=== PATIENT | male | born 1965 | race Caucasian/White ===

== ENCOUNTER 2016-07-08 08:59 | Observation (INO) ==
[2016-07-08] MEDS ORDERED: Ipratropium/Albuterol Neb 3 ML ONE (09:14)
[2016-07-08] MEDS ORDERED: Levalbuterol Neb 1.25 MG/3 ML ONE (09:30)
[2016-07-08] MEDS ORDERED: Levalbuterol Neb 1.25 MG/3 ML IH ONE ×2 (09:33→09:36)
[2016-07-08] MEDS ORDERED: Ipratropium/Albuterol Neb 3 ML IH ONE ×2 (09:34→09:36)
--- NOTE | 2016-07-08 09:38 | Emergency Department Note ---
Disposition Clinical Impression: COPD exacerbation Disposition: Admitted As Inpatient Condition: Fair Referrals: Rosalie Martinez CNP [Primary Care Provider] - Forms: ED Satisfaction Letter SOB HPI - General Chief Complaint: ED Upper Respiratory Infection Stated Complaint: coughing,rib and back pain Source: patient Limitations: no limitations Nursing Notes Reviewed: Yes Vital Signs Reviewed: Yes - History of Present Illness 51-year-old male presents for difficulty breathing, chest pain, and productive cough. Patient states she has had productive cough for the last 3 days. He is a known history of COPD. He complains of bilateral rib pain from his coughing. He is unaware of any fever. His prior history of COPD states using nebulizers at home on an as-needed basis. He does not use oxygen. He has never been hospitalized for it. He is a smoker around one pack per day. He has not been smoking for the last 3 days because of his shortness of breath. - Related Data Home Medications Medication Instructions Recorded Confirmed Aspirin 81 mg PO DAILY 12/06/15 07/08/16 Atenolol 100 mg PO DAILY 12/06/15 07/08/16 HYDROcodone/Acet 5/325 mg [[place] 1 tab PO Q6H PRN 12/06/15 07/08/16 5-325 mg] Hydrochlorothiazide 25 mg PO DAILY 07/08/16 07/08/16 Lisinopril [Zestril] 20 mg PO DAILY 07/08/16 07/08/16 Previous Rx's Medication Instructions Recorded Ipratropium/Albuterol Neb [Duoneb] 3 ml IH Q4HR #1 vial.neb 12/06/15 Allergies Allergy/AdvReac Type Severity Reaction Status Date / Time morphine AdvReac Chest Pain Verified 07/08/16 09:16 Review of Systems: Constitutional: [Negative for fever and chills.] HENT: [Negative for congestion.] Eyes: [Negative for discharge.] Respiratory: See history of present illness Cardiovascular: See history of present illness Gastrointestinal: [Negative for nausea, vomiting, abdominal pain and diarrhea.] Endocrine: [Negative for excessive thirst,urination] Genitourinary: [Negative for dysuria and frequency.] Musculoskeletal: [Negative for myalgias and arthralgias.] Skin: [Negative for rash.] Neurological: [Negative for dizziness, localized weakness and headaches.] Psychiatric/Behavioral: [Negative for nervous/anxious.] All other systems reviewed and are negative. Past Medical History - Past Medical History Attestation: Yes The following information was validated with the patient. Source: patient Medical history: Reports: asthma, COPD, coronary artery disease, hypertension Psychiatric history: Reports: no psych history - Social History Smoking Status: Current every day smoker Smokeless Tobacco Status: No Alcohol use: Reports: none Drug use: Reports: none Physical Exam Constitutional: Patient is alert, overweight, [well nourished, well developed] , mildly tachypneic and cooperative. . The patient appears, nontoxic, and [ does not appear ill]. There is mild pain. HENT: Head: Normocephalic and atraumatic. Right Ear: External ear normal. Left Ear: External ear normal. Nose: Nose normal. Mouth/Throat: Oropharynx is clear and moist and mucous membranes show [good hydration.][] Eyes: Conjunctivae and EOM are normal. Pupils are equal, round, and reactive to light. Right eye exhibits no discharge. Left eye exhibits no discharge. Neck: Trachea is midline, normal range of motion and phonation normal. Neck supple. Cardiovascular: [Normal rate], regular rhythm, S1 normal, S2 normal, normal heart sounds and intact distal pulses. Exam reveals no gallop and no friction rub. No murmur heard. Pulmonary/Chest: Effort increased No stridor. Mild tachypnea. [No] respiratory distress. There are no decreased breath sounds. There are diffuse wheezes and rhonchi heard throughout all lung robertson, no rales. There is chest wall tenderness in his bilateral ribs but no crepitus or deformity. Abdominal: Soft. Bowel sounds are normal. There exhibits no distension and no mass. There is no hepatosplenomegaly. There is [no] tenderness, [no] CVA tenderness. There is no rigidity, no rebound, no guarding. Musculoskeletal: Normal range of motion and exhibits [no] edema or tenderness. Neurological: Patient is alert and oriented to [person, place, and time]. Patient displays no atrophy and no tremor. No cranial nerve deficit and exhibits normal muscle tone. Coordination normal. Skin: Skin is warm and dry. No rash noted. No erythema. Psychiatric: Patient has a normal mood,affect, behavior, judgment, and thought content. Course - Reevaluation(s) Reevaluation #1: The patient despite 3 breathing treatments and Solu-Medrol IV still shows significant rhonchi and wheezes. Vital Signs Temperature 98.8 F 07/08/16 09:17 Pulse Rate 80 07/08/16 09:17 Respiratory Rate 22 07/08/16 09:17 Blood Pressure 120/92 07/08/16 09:17 O2 Sat by Pulse Oximetry 100 07/08/16 09:17 Temperature 98.8 F 07/08/16 09:17 Pulse Rate 80 07/08/16 09:17 Respiratory Rate 22 07/08/16 09:17 Blood Pressure 120/92 07/08/16 09:17 O2 Sat by Pulse Oximetry 100 07/08/16 09:17 Oxygen Delivery Oxygen Delivery Aerosol Mask Shortness of Breath/Dyspnea - MDM Narrative Medical decision making narrative: Patient continues to show significant problems with COPD. I will admit him for 24-hour observation. - Lab Data Lab results reviewed: Yes I reviewed the patient's lab results. Result diagrams: 07/08/16 09:35 07/08/16 09:35 Lab Results 07/08/16 07/08/16 07/08/16 Range/Units 09:35 09:35 09:35 WBC 5.2 (4.3-11.1) K/mcL RBC 4.90 (4.19-5.50) M/mcL Hgb 15.9 (12.9-16.9) g/dL Hct 44.7 (37.5-50.1) % MCV 91.2 (83.0-100.0) fL MCH 32.4 (28.0-33.3) pg MCHC 35.6 H (31.6-35.5) g/dL RDW 12.3 (11.5-14.5) % Plt Count 214 (140-400) K/mcL MPV 10.5 (9.4-12.4) fL Immature Gran % 0.4 (0-4) % Seg Neutrophils % 63.1 % Lymphocytes % 22.9 % Monocytes % 13.0 % Eosinophils % 0.2 % Basophils % 0.4 % Neutrophils # 3.3 (1.6-8.9) K/mcL Lymphocytes # 1.2 (0.6-4.6) K/mcL Monocytes # 0.7 (0.0-1.3) K/mcL Eosinophils # 0.0 (0.0-0.6) K/mcL Basophils # 0.0 (0.0-0.2) K/mcL VBG Lactic Acid (0.5-2.2) mmol/L Sodium 139 (136-145) mEq/L Potassium 4.1 (3.5-4.5) mEq/L Chloride 102 (98-109) mEq/L Carbon Dioxide 25 (19-29) mEq/L BUN 9 (8-26) mg/dL Creatinine 0.82 (0.72-1.25) mg/dL Est GFR ( Amer) > 60 (> 60) Est GFR (Non-Af Amer) > 60 (> 60) BUN/Creatinine Ratio 11 (6-26) Glucose 101 H (70-99) mg/dL Calculated Osmolality 287 (280-300) Calcium 9.8 (8.6-10.8) mg/dL Troponin I 0.01 (0-0.03) ng/mL B-Natriuretic Peptide (0-100) pg/mL 07/08/16 07/08/16 Range/Units 09:35 09:57 WBC (4.3-11.1) K/mcL RBC (4.19-5.50) M/mcL Hgb (12.9-16.9) g/dL Hct (37.5-50.1) % MCV (83.0-100.0) fL MCH (28.0-33.3) pg MCHC (31.6-35.5) g/dL RDW (11.5-14.5) % Plt Count (140-400) K/mcL MPV (9.4-12.4) fL Immature Gran % (0-4) % Seg Neutrophils % % Lymphocytes % % Monocytes % % Eosinophils % % Basophils % % Neutrophils # (1.6-8.9) K/mcL Lymphocytes # (0.6-4.6) K/mcL Monocytes # (0.0-1.3) K/mcL Eosinophils # (0.0-0.6) K/mcL Basophils # (0.0-0.2) K/mcL VBG Lactic Acid 1.6 (0.5-2.2) mmol/L Sodium (136-145) mEq/L Potassium (3.5-4.5) mEq/L Chloride (98-109) mEq/L Carbon Dioxide (19-29) mEq/L BUN (8-26) mg/dL Creatinine (0.72-1.25) mg/dL Est GFR ( Amer) (> 60) Est GFR (Non-Af Amer) (> 60) BUN/Creatinine Ratio (6-26) Glucose (70-99) mg/dL Calculated Osmolality (280-300) Calcium (8.6-10.8) mg/dL Troponin I (0-0.03) ng/mL B-Natriuretic Peptide 15 (0-100) pg/mL - Radiology Data Radiology results reviewed: Yes I reviewed the patient's radiology results. I have contemporaneously read the radiology report from the radiologist which has the following findings: Chest x-ray IMPRESSION: No acute cardiopulmonary process - EKG Data EKG attestation: Yes I reviewed and interpreted this EKG. EKG shows normal: Reports: sinus rhythm, axis, intervals, QRS complexes, ST-T waves Rate: Reports: normal Interpretation: Reports: no acute changes, normal EKG
[2016-07-08 10:02] LABS: Basophils % 0.4 %; Eosinophils % 0.2 %; Hematocrit 44.7 % (37.5-50.1); Hemoglobin 15.9 g/dL (12.9-16.9); Immature Granulocytes % 0.4 % (0-4); Lymphocytes # 1.2 K/mcL (0.6-4.6); Lymphocytes % 22.9 %; Mean Corpuscular HGB Conc 35.6 g/dL (31.6-35.5); Mean Corpuscular Hemoglobin 32.4 pg (28.0-33.3); Mean Corpuscular Volume 91.2 fL (83.0-100.0); Mean Platelet Volume 10.5 fL (9.4-12.4); Monocytes # 0.7 K/mcL (0.0-1.3); Neutrophils # 3.3 K/mcL (1.6-8.9); Platelet Count 214 K/mcL (140-400); Red Cell Distribution Width 12.3 % (11.5-14.5); Segmented Neutrophils % 63.1 %
[2016-07-08 10:18] LABS: BUN/Creatinine Ratio 11 (6-26); Blood Urea Nitrogen 9 mg/dL (8-26); Calcium 9.8 mg/dL (8.6-10.8); Carbon Dioxide 25 mEq/L (19-29); Chloride 102 mEq/L (98-109); Glucose 101 mg/dL (70-99); Osmolality,Calculated 287 (280-300); Potassium 4.1 mEq/L (3.5-4.5); Sodium 139 mEq/L (136-145); eGFR For African Americans > 60 (> 60); eGFR For Non-African Americans > 60 (> 60)
[2016-07-08] MEDS ORDERED: Acetaminophen 325 MG TABLET PO PRN (11:06)
[2016-07-08] MEDS ORDERED: Ondansetron ODT 4 MG TAB.RAPDIS SL PRN (11:06)
[2016-07-08] MEDS ORDERED: Albuterol 2.5 MG/3 ML NEBULIZER IH SCH (12:30)
--- NOTE | 2016-07-08 13:01 | Electrocardiograph Report ---
[facility] Test Date: 2016-07-08 Pat Name: Pascual Justin Department: 2001 Room: 114 Gender: M Field Service Rep: Tlc : 1965 Requested By: Sudarshan Salgado Order Number: [id number] Giovanny MD: Mateo Viramontes DO Measurements Intervals [place] Rate: 82 P: 55 DE: 140 QRS: 41 QRSD: 93 T: 44 QT: 347 QTc: 386 Interpretive Statements Sinus rhythm Electronically Signed On 07-08-16 13:00:44 EST by Mateo Viramontes DO
--- NOTE | 2016-07-08 13:12 | Internal Med History&Physical ---
Date of Encounter: 07/08/16 Time of Encounter: 13:10 Assessment and Plan (1) Bronchitis Current visit: Yes Status: Acute Patient's coughing quite a bit. These draining of sore ribs and is producing white sputum (2) COPD exacerbation Current visit: Yes Status: Acute Looks like an exacerbation of COPD with very coarse breath sounds with scattered rhonchi Internal Medicine - H&P: HPI Chief complaint: Patient has been experiencing increasing short of breath at home. Patient Admitted From: Emergency Dept Plans for Post Hospital Care: Home History of present illness: Mr. Justin is a 51 year old male Patient has a history of COPD. Does not wear oxygen at home. States he has been coughing and coughing and more short of breath last 3 days and has not been smoking Past Med Surg Social Fam HX - Past Medical History Medical history: asthma, COPD, coronary artery disease, hypertension Psychiatric history: no psych history - Social History Smoking Status: Current every day smoker Smokeless Tobacco Status: No Alcohol use: none Drug use: none Internal Medicine - H&P: Meds Aspirin 81 mg PO DAILY 12/06/15 [History] Atenolol 100 mg PO DAILY 12/06/15 [History] HYDROcodone/Acet 5/325 mg [[place] 5-325 mg] 1 tab PO Q6H PRN 12/06/15 [History] Ipratropium/Albuterol Neb [Duoneb] 3 ml IH Q4HR #1 vial.neb 12/06/15 [Rx] Hydrochlorothiazide 25 mg PO DAILY 07/08/16 [History] Lisinopril [Zestril] 20 mg PO DAILY 07/08/16 [History] Allergies morphine Adverse Reaction (Verified 07/08/16 09:16) Chest Pain All Systems PM: A 10-system review of systems was performed and is negative for pertinent findings except as documented above in the HPI. - Constitutional Vitals: Temp Pulse Resp BP Pulse Ox 97.8 F 78 24 134/85 96 07/08/16 12:31 07/08/16 12:31 07/08/16 12:31 07/08/16 12:31 07/08/16 12:31 - Head Head exam: Present: atraumatic, normal inspection, normocephalic - Neck Neck exam general surgery: Present: supple, trachea midline. Absent: lymphadenopathy - Respiratory Respiratory exam: Present: decreased breath sounds, CTAB, prolonged expiratory phase. Absent: accessory muscle use, rales, rhonchi, wheezes Additional comments: Patient complaining of rib pain but he has very coarse breath sounds and productive cough of white sputum Internal Med - H&P Results - Labs CBC & Chem 7: 07/08/16 09:35 07/08/16 09:35 Labs: Lab is stable - VTE Reasons for not Prescribing Prophylaxis: Treatment not Indicated - Low risk for VTE
[2016-07-08] MEDS: *HR* HYDROcodone/Acet 5/325 mg TABLET PO PRN ×2 (14:21→21:13)
[2016-07-08] MEDS ORDERED: Albuterol 2.5 MG/3 ML NEBULIZER IH PRN (14:48)
[2016-07-08] MEDS: PredniSONE 20 MG TABLET PO SCH ×2 (15:45→23:33)
[2016-07-08] MEDS: Ipratropium/Albuterol Neb 3 ML IH SCH ×2 (15:45→21:14)
[2016-07-09] MEDS: Ipratropium/Albuterol Neb 3 ML IH SCH ×4 (03:04→22:07)
[2016-07-09] MEDS: *HR* HYDROcodone/Acet 5/325 mg TABLET PO PRN ×4 (03:04→22:11)
[2016-07-09] MEDS: Lisinopril 20 MG TABLET PO SCH ×2 (03:58→07:46)
[2016-07-09] MEDS: PredniSONE 20 MG TABLET PO SCH ×2 (08:26→15:59)
[2016-07-09] MEDS: Aspirin 81 MG TAB.CHEW PO SCH (08:26)
[2016-07-09] MEDS: Levofloxacin 500 MG/100 ML 500 MG/100 ML BAG IVPB SCH (08:29)
[2016-07-09] MEDS: Nicotine 21 MG PATCH.TD24 TD SCH (11:33)
--- NOTE | 2016-07-09 13:22 | Internal Med Progress Note ---
Date of Encounter: 07/09/16 Time of Encounter: 13:21 - Assessment and plan (1) Bronchitis Current Visit: Yes Status: Acute (2) COPD exacerbation Current Visit: Yes Status: Acute - Time Spent With Patient less than 15 minutes - Subjective Interval history: Patient looks better today states he is a little improved. Still wheezing though still showing without rhonchi - Constitutional Vitals: Temp Pulse Resp BP Pulse Ox 98.4 F 71 18 106/66 94 L 07/09/16 11:00 07/09/16 11:00 07/09/16 11:00 07/09/16 11:00 07/09/16 11:00 - Head Head exam: Present: atraumatic, normal inspection, normocephalic - Neck Neck exam general surgery: Present: supple, trachea midline. Absent: lymphadenopathy - Respiratory Respiratory exam: Present: CTAB. Absent: accessory muscle use, rales, rhonchi, wheezes Additional comments: Patient still has rhonchi expiratory wheezes. They are improved - Cardiovascular Cardiovascular exam: Present: RRR, +S1, +S2. Absent: diastolic murmur, gallop, rubs, systolic murmur - GI/Abdominal GI/Abdominal exam: Present: normal bowel sounds, soft, no peritoneal signs. Absent: distended, tenderness Internal Medicine: Result - Labs CBC & Chem 7: 07/08/16 09:35 07/08/16 09:35 Labs: Lab is stable - VTE Reasons for not Prescribing Prophylaxis: Treatment not Indicated - Low risk for VTE Documentation of Mechanical Device: Graduated compression elastic hosiery Consult Discharge Plan - Plan Referrals: Rosalie Martinez, SETTLEMENT TECHNICIAN [Primary Care Provider] -
--- NOTE | 2016-07-09 20:28 | Electrocardiograph Report ---
[facility] Test Date: 2016-07-09 Pat Name: Pascual Justin Department: 2001 Room: 114 Gender: M Registered Route Associate: Katie : 1965 Requested By: Danny Gleason Order Number: [id number] Giovanny MD: Jacobo Lloyd MD Measurements Intervals Raymond Rate: 59 P: 58 OK: 132 QRS: 31 QRSD: 100 T: 28 QT: 412 QTc: 411 Interpretive Statements SINUS BRADYCARDIA WITH SINUS ARRHYTHMIA Electronically Signed On 07-09-16 20:27:15 EST by Jacobo Lloyd MD
[2016-07-10] MEDS: PredniSONE 20 MG TABLET PO SCH ×3 (00:02→18:00)
[2016-07-10] MEDS: Ipratropium/Albuterol Neb 3 ML IH SCH ×4 (04:24→23:20)
[2016-07-10] MEDS: *HR* HYDROcodone/Acet 5/325 mg TABLET PO PRN ×3 (04:24→18:03)
[2016-07-10] MEDS: Levofloxacin 500 MG/100 ML 500 MG/100 ML BAG IVPB SCH (08:10)
[2016-07-10] MEDS: Aspirin 81 MG TAB.CHEW PO SCH (08:12)
[2016-07-10] MEDS: Lisinopril 20 MG TABLET PO SCH (08:12)
[2016-07-10] MEDS: Nicotine 21 MG PATCH.TD24 TD SCH (08:13)
[2016-07-10] MEDS ORDERED: Nicotine 21 MG PATCH.TD24 TD SCH (09:00)
[2016-07-11] MEDS: *HR* HYDROcodone/Acet 5/325 mg TABLET PO PRN ×2 (00:19→08:21)
[2016-07-11] MEDS: PredniSONE 20 MG TABLET PO SCH ×2 (02:45→10:45)
[2016-07-11] MEDS: Ipratropium/Albuterol Neb 3 ML IH SCH ×2 (04:33→10:55)
[2016-07-11] MEDS: Levofloxacin 500 MG/100 ML 500 MG/100 ML BAG IVPB SCH (08:04)
[2016-07-11] MEDS: Nicotine 21 MG PATCH.TD24 TD SCH (08:05)
[2016-07-11] MEDS: Lisinopril 20 MG TABLET PO SCH (08:05)
[2016-07-11] MEDS: Aspirin 81 MG TAB.CHEW PO SCH (08:05)
--- NOTE | 2016-07-11 11:24 | Discharge Summary ---
Date of Encounter: 07/11/16 Time of Encounter: 11:21 - Discharge Diagnosis (1) COPD exacerbation Priority: Primary Status: Acute Comments: Much improved - Discharge Medications Prescriptions: Ipratropium/Albuterol Neb [Duoneb] 3 ml IH Q4HR #1 vial.neb Levofloxacin [Levaquin] 500 mg PO DAILY #10 tablet PredniSONE 60 mg PO DAILY #15 tablet Home Medications: Aspirin 81 mg PO DAILY 12/06/15 [History] Atenolol 100 mg PO DAILY 12/06/15 [History] HYDROcodone/Acet 5/325 mg [[place] 5-325 mg] 1 tab PO Q6H PRN 12/06/15 [History] Hydrochlorothiazide 25 mg PO DAILY 07/08/16 [History] Lisinopril [Zestril] 20 mg PO DAILY 07/08/16 [History] Ipratropium/Albuterol Neb [Duoneb] 3 ml IH Q4HR #1 vial.neb 07/11/16 [Rx] Levofloxacin [Levaquin] 500 mg PO DAILY #10 tablet 07/11/16 [Rx] PredniSONE 60 mg PO DAILY #15 tablet 07/11/16 [Rx] Allergies/Adverse Reactions: Allergies morphine Adverse Reaction (Verified 07/08/16 09:16) Chest Pain Procedures/tests Complete & Pending: Procedures Performed prior 72 hours Category Date Time Status ECG 12 lead ECG [ECG] Routine Y 07/09/16 12:00 Completed Date of admission: 07/08/16 12:12 Primary care physician: Rosalie Martinez CNP Discharging clinician: Maureen Lockett Anticipated date of discharge: 07/11/16 - Patient Status Disposition: Home, Self-Care Condition: Fair Overall status at discharge: patient is back to baseline - Discharge Instructions Instructions: Chronic Obstructive Pulmonary Disease (DC) Follow Up With: Rosalie Martinez CNP [Primary Care Provider] - - Diet and Activity Activity: increase activity as tolerated Diet: advance to your usual diet Hospital course: Mr. Justin is a 51 year old male 51-year-old male presents to the ED for difficulty breathing, chest pain, and productive cough. Patient states she has had productive cough for the last 3 days. He is a known history of COPD. He complains of bilateral rib pain from his coughing. He is unaware of any fever. His prior history of COPD states using nebulizers at home on an as-needed basis. He does not use oxygen. He has never been hospitalized for it. He is a smoker around one pack per day. He has not been smoking for the last 3 days because of his shortness of breath. He was admitted for IV antibiotics, steroids and breathing treatments. This morning, the patient states that he feels much better and wants to go home. He denies any shortness of breath. No chest pain. He will continue his oral antibiotics and prednisone. He has a home nebulizer treatment. He is to follow -up with his primary care physician this week Time spent discussing smoking cessation with patient: more than 10 minutes - Time Spent with Patient Total time spent providing and/or coordinating discharge services: Greater than 30 minutes - Constitutional Vitals: Temp Pulse Resp BP Pulse Ox 98.9 F 83 18 102/60 95 07/11/16 07:25 07/11/16 07:25 07/11/16 07:25 07/11/16 07:25 07/11/16 07:25 General appearance: Present: A&O X 3, pleasant, no acute distress - Respiratory Respiratory exam: Present: CTAB. Absent: accessory muscle use, rales, rhonchi, wheezes - Cardiovascular Cardiovascular exam: Present: RRR, +S1, +S2. Absent: diastolic murmur, gallop, rubs, systolic murmur - GI/Abdominal GI/Abdominal exam: Present: normal bowel sounds, soft, no peritoneal signs. Absent: distended, tenderness - Extremities Exam Extremities exam: Present: warm, radial pulses palpable and symetrical. Absent : calf tenderness, cyanotic, pedal edema - Neurological Exam Neurological exam: Present: CN II-XII intact, oriented X3, no focal deficits. Absent: pronater drift, facial droop, speech deficit - VTE Reasons for not Prescribing Prophylaxis: Treatment not Indicated - Low risk for VTE Documentation of Mechanical Device: Graduated compression elastic hosiery
[2016-07-11] MEDS ORDERED: FLU VACC QS2016-17 36MOS UP/PF 0.5 ML SYRINGE IM ONE (11:49)
[2016-07-11 12:00] VITALS: BP 146/88
== END 2016-07-11 12:25 | disposition home or self-care (01) ==
LOC: EMEROOGRE 08:59 → INPGRE 08:59
PROVIDERS: ADMIT Internal Medicine; ATTEND Internal Medicine